=== PATIENT | male | born 2000 | race African-American/Black ===

== ENCOUNTER 2022-11-06 00:58 | Emergency (ER) | payer MEDICAID ==
[~2022-11-06] VITALS: Ht 180.3 cm; Wt 74.0 kg
[2022-11-06 01:01] VITALS: TEMP 98.7; O2SAT 99
[2022-11-06 01:29] LABS: BASOPHILS % 0.3 % (0.0-2.0); EOSINOPHILS % 0.8 % (0.0-5.0); HEMATOCRIT. 38.6 % (42.0-52.0); HEMOGLOBIN. 13.6 g/dL (14.0-18.0); MEAN CORPUSCULAR HEMOGLOBIN 33.4 pg (28.0-32.0); MEAN CORPUSCULAR VOLUME 94.9 fL (80.0-94.0); MEAN PLATELET VOLUME 8.1 fl (7.4-10.4); MONOCYTES % 10.4 % (2.0-8.0); NEUTROPHILS % 78.5 % (40.0-76.0); PLATELET 220 x1000/uL (130-400); RED BLOOD CELL COUNT 4.06 mill/uL (4.7-6.1); RED CELL DISTRIBUTION WIDTH 12.9 % (11.6-14.6)
[2022-11-06 01:40] LABS: CHLORIDE 104 mEq/L (98-107)
[2022-11-06 02:50] LABS: CLARITY URINE CLOUDY (CLEAR); COLOR URINE DARK YELLOW (YELLOW); KETONES URINE NEGATIVE (NEGATIVE); LEUKOCYTE ESTERASE URINE 1+ (NEGATIVE); NITRITE URINE NEGATIVE (NEGATIVE); OCCULT BLOOD URINE 3+ (NEGATIVE); PH URINE 5.5 (4.5-8.0); PROTEIN URINE 2+ (NEGATIVE); SPECIFIC GRAVITY URINE 1.031 (1.005-1.030)
[2022-11-06 06:30] VITALS: BP 138/84; PULSE 84; RESP 18
[2022-11-06] MEDS ORDERED: KETOROLAC 60MG/2ML VIAL IM ONE (06:30)
[2022-11-06] MEDS ORDERED: CEPH500T MT (08:35)
== END 2022-11-06 06:40 | disposition left against medical advice (07) ==
LOC: ER 00:58
DX: N23 Unspecified renal colic (principal)
CPT/HCPCS: 80053; 81003; 83690; 85025; 87086; 36415; 74176; 96372; 99285; J1885; Z7610